=== PATIENT | female | born 1960 | race Caucasian/White ===

== ENCOUNTER 2018-06-29 11:08 | Outpatient (CLI) | payer MEDICARE ==
[~2018-06-29] VITALS: Ht 168.9 cm; Wt 92.7 kg
--- NOTE | ~2018-06-29 | OP ---
PATIENT NAME: SHEILA PRATHER MEDICAL RECORD: [id number] :64 LOCATION:D.CAT ADMISSION DATE: SURGEON: SIOMARA MARIEE MD DATE OF OPERATION: 06/29/2018 PROCEDURE: Left heart catheterization, selective coronary angiography, right radial approach. CATHETERS: A 5-Kazakh sheath, 5/4 left and right Bibi, 5/4 pig. The procedure was well tolerated. The patient returned to the brownlee. Sheath was removed. TR band was placed. FINDINGS: Left ventriculography in 30-degree SOTELO view shows decreased global hypokinesis and reduced LV function. Estimated EF 40% to 45%. CORONARY ANATOMY: LEFT MAIN: Left main is free of disease. LAD: Free of disease in the diagonal system. CIRCUMFLEX: Free of disease in the marginal system. RIGHT CORONARY ARTERY: It has about 50% stenosis in midportion, not flow obstructive. IMPRESSION: Nonischemic cardiomyopathy, improved on therapy. No contraindication to surgery from cardiovascular standpoint. TRANSINT:[id number] Voice Confirmation ID: [id number] DOCUMENT ID: [id number] SIOMARA MARIEE MD at 1135 CC: [id number] DICTATION DATE: 06/29/18 1317 INSPECTOR FLOOR: 06/29/18 1331 DEP CLI 06/29/18 [address] [place] [address]
--- NOTE | ~2018-06-29 | HEMODYNAMI ---
PATIENT:SHEILA PRATHER MEDICAL RECORD: [id number] : 64 LOCATION:[facility] ADMISSION DATE: 06/29/18 Generatedon:06/29/201813:16 Patient name: SHEILA PRATHER Patient #: [id number] SSN: : 1960 Date of study: 06/29/2018 Page: Of Hemodynamic Procedure Report Patient Data Patient Demographics Procedure consent was obtained First Name: SHEILA Gender: Female Last Name: CRESCENCIO : 1960 Patient #: [id number] Age: 58 year(s) Race: Unknown Additional ID: [id number] Contact details [address]: [address] [place] [address] State: [place] City: [place] Zip code: [address] Admission Admission Data Admission Date: 06/29/2018 Admission Time: 11:08 Height (in.): 66.5 BSA: 2.02 (m2) Height (cm.): 168.91 BMI: 32.11 (kg/m2) Weight (lbs.): 202 Weight (kg.): 91.63 Procedure Procedure Types Cath Procedure Diagnostic Procedure [facility] w/Coronaries Procedure Description Procedure Date Procedure Date: 06/29/2018 Procedure Start Time: 13:03 Procedure End Time: 13:15 Procedure Staff Name Function Yosi Bolanos MD Performing Physician Maliha Diaz RN Nurse Sarah Vega RN Nurse Ericka Coelho RT Scrub Cayla Granger RT Monitor Procedure Data Cath Procedure Fluoroscopy Diagnostic fluoroscopy Total fluoroscopy Time: 2.3 time: 2.3 min min Diagnostic fluoroscopy Total fluoroscopy dose: 649 dose: 649 mGy mGy Contrast Material Contrast Material Type Amount (ml) Isovue 300 64 Entry Location Entry Primary Successful Side Size Upsize Upsize Entry Closure [place]ton ccessful Closure Location (Fr) 1 (Fr) 2 (Fr) Remarks Device Remarks Radial Right 6 Fr Mechanical artery Short Compression Estimated blood loss: 5 ml Diagnostic catheters Device Type Used For End Catheter Placement DIAGNOSTIC [place] 110cm 5 Procedure Fr catheter ([id number]) Procedure Complications No complications Procedure Medications Medication Administration Route Dosage 0.9% NaCl I.V. 100 ml/hr Oxygen etCO2 Nasal cannula 2 l/min Lidocaine 2% added to field 20 Heparin Flush Bag added to field 2 bags (1000units/500ml NS) Dilaudid I.V. 1 mg Versed I.V. 2 mg Zofran I.V. 4 mg Radial Cocktail added to field 1 syringe (Verapomil 2mg/Nitro 400mcg/Heparin 1500units) Dilaudid I.V. 0.5 mg Versed I.V. 2 mg Hemodynamics Rest BSA: 2.02 (m2) O2 Consumption: Estimated: 183.52 (ml/min) O2 Consumption indexed : Estimated:90.85 (ml/min/m) Heart Rate: 56 (bpm) Pressure Samples Time Site Value (mmHg) Purpose Heart Use Rate(bpm) 13:10 LV 136/9,12 Snapshot 53 13:10 AO 119/41(78) Pullback 63 13:10 LV 126/10,15 Pullback 63 Gradients Valve Time Site 1 Site 2 Mean SEP/DFP Peak To Heart Use (mmHg) (sec/min) Peak Rate (mmHg) (bpm) Aortic 13:10 LV AO 15 16 7 63 126/10,15 119/41(78) Calculations Valve P-P Mean Valve Index Valve Source Name Gradient Area Flow (cm2) Aortic 7 15 7 15 Snapshots Pre Cath Intra NCS Post Cath Vital Signs Time Heart Resp SPO2 etCO2 NIBP (mmHg) Rhythm Pain Sedation Rate (ipm) (%) (mmHg) Status Level (bpm) 12:56:43 79 13 96 39.8 145/73(116) NSR 0 (11) 10(A) , No pain 13:01:05 57 12 97 46.6 140/70(119) NSR 0 (11) 10(A) , No pain 13:05:27 58 12 97 31.5 140/69(111) NSR 0 (11) 10(A) , No pain 13:09:39 72 13 95 40.6 108/58(88) NSR 0 (11) 10(A) , No pain 13:13:49 61 14 95 45.8 121/68(95) NSR 0 (11) 10(A) , No pain Medications Time Medication Route Dose Verified Delivered Reason Notes Effectiveness by by 12:55:56 0.9% NaCl I.V. 100 Yosi Sarah used for ml/hr CiciEamon Vega procedure RN 12:56:05 Oxygen etCO2 2 l/min Yosi Banuelosyla used for Nasal [place] Gary procedure cannula MD ALEXANDER 12:56:14 Lidocaine 2% added 20ml Yosi Deluca for local to vial [facility] anesthetic field MD CHAUDHARY 12:56:22 Heparin Flush added 2 bags Yosi Deluca used for Bag to [facility] procedure (1000units/500ml field MD CHAUDHARY NS) 13:04:09 Dilaudid I.V. 1 mg Yosi Deluca for sedation [facility] Bolanos MD, MD 13:04:16 Versed I.V. 2 mg Yosi Deluca for sedation [facility] Bolanos MD, MD 13:04:27 Zofran I.V. 4 mg Yosi Deluca for nausea [facility] Bolanos MD, MD 13:05:27 Radial Cocktail added 1 Yosi Deluca for (Verapomil to syringe [facility] vasodilation 2mg/Nitro field MD CHAUDHARY 400mcg/Heparin 1500units) 13:08:36 Dilaudid I.V. 0.5 mg Yosi Deluca for sedation [facility] Bolanos MD, MD 13:08:41 Versed I.V. 2 mg Yosi Deluca for sedation [facility] Bolanos MD, MD Procedure Log Time Note 12:35:42 Maliha Diaz RN sent for patient. Start room use. 12:35:42 Time tracking: Regular hours (M-F 7:00 - 5:00) 12:35:47 Plan of Care:Hemodynamics will remain stable., Cardiac rhythm will remain stable., Comfort level will be maintained., Respiratory function will remain adequate., Patient/ family verbilizes understanding of procedure., Procedure tolerated without complication., Recovers from procedure without complications.. 12:42:51 Patient received from Pre/Post Procedure Room to CCL 1 Alert and oriented. Tansferred to table in Supine position. 12:42:54 Warm blankets applied, and brennen hugger turned on for patient comfort. 12:42:55 Correct patient and procedure confirmed by team. 12:42:57 Signed procedure consent form obtained from patient. 12:42:58 ECG and BP/O2 sat monitors applied to patient. 12:43:06 H&P Date Dictated: 06/19/2018 Within 30 days and on chart., H&P Addendum completed by physician on day of procedure. (MUST COMPLETE FOR ALL OUTPATIENTS). 12:46:49 Pre-procedure instructions explained to patient. 12:46:52 Family in patients room. 12:46:54 Patient NPO since Midnight. 12:47:03 Is the patient allergic to Iodine/contrast media? No. 12:47:12 Was the patient premedicated? Yes 12:47:14 Is patient on blood thinner?No 12:47:16 Patient diabetic? Yes. 12:47:17 If diabetic: On Metformin? No 12:47:23 Snore? Yes 12:47:25 Sleep apnea? No 12:47:36 Airway obstruction? Yes COPD 12:47:53 IV patent on arrival in left forearm with 0.9% NaCl at KVO. 12:48:05 Lab results completed and on chart. 12:48:09 Right Radial & Right Groin area was prepped with chlora-prep and draped in sterile fashion 12:48:11 Alarms reviewed by R. N. 12:48:12 Sharps counted by scrub and verified by R.N. 12:48:13 Physician paged 12:54:43 Use device set Radial Dx or PCI 12:54:48 ACIST Syringe (05648) opened to sterile field. 12:54:49 Bag Decanter (2002S) opened to sterile field. 12:54:49 ACIST Hand Control (57042) opened to sterile field. 12:54:50 ACIST Manifold (44638) opened to sterile field. 12:54:52 Tegaderm 4 x 4 (1626W) opened to sterile field. 12:54:54 Medline Cath Pack ([id number]) opened to sterile field. 12:54:54 DIAGNOSTIC WIRE .035 260cm J wire (319572) opened to sterile field. 12:54:55 MBrace Wrist Support ([id number]) opened to sterile field. 12:54:56 SHEATH 6Fr Prelude Radial ([id number]) opened to sterile field. 12:55:30 Vital chart was started 12:55:56 0.9% NaCl 100 ml/hr I.V. was administered by Sarah Vega RN; used for procedure; 12:56:05 Oxygen 2 l/min etCO2 Nasal cannula was administered by Sarah Vega RN; used for procedure; 12:56:11 Patient Weight : 202 lbs 12:56:14 Lidocaine 2% 20ml vial added to field was administered by Yosi Bolanos MD; for local anesthetic; 12:56:20 Patient Height : 66.5 inches 12:56:22 Heparin Flush Bag (1000units/500ml NS) 2 bags added to field was administered by Yosi Bolanos MD; used for procedure; 13:00:08 Zero performed for pressure channel P1 13:01:35 Zero performed for pressure channel P1 13:02:03 --------ALL STOP TIME OUT------ 13:02:04 Final Timeout: patient, procedure, and site verified with staff and physician. All members of the team are in agreement. 13:02:06 Right Radial & Right Groin site verified by team. 13:02:09 Physical assessment completed. ASA score P 2 - A patient with mild systemic disease as per Yosi Bolanos MD. 13:02:12 Sedation plan: IV Moderate Sedation Medication:Versed, Dilaudid 13:03:43 Procedure started. 13:03:43 Full Disclosure recording started 13:03:55 Local anesthetic to right radial artery with Lidocaine 2% by Yosi Bolanos MD.INITIAL ACCESS ONLY 13:04:09 Dilaudid 1 mg I.V. was administered by Yosi Bolanos MD; for sedation; 13:04:16 Versed 2 mg I.V. was administered by Yosi Bolanos MD; for sedation; 13:04:27 Zofran 4 mg I.V. was administered by Yosi Bolanos MD; for nausea; 13:05:02 A 6 Fr Short sheath was inserted into the Right Radial artery 13:05:27 Radial Cocktail (Verapomil 2mg/Nitro 400mcg/Heparin 1500units) 1 syringe added to field was administered by Yosi Bolanos MD; for vasodilation; 13:05:28 A DIAGNOSTIC [place] 110cm 5 Fr catheter (246940) was advanced over the wire and used for Procedure. 13:05:39 Baseline sample Acquired. 13:05:43 Baseline sample Acquired. 13:05:50 Rhythm: sinus bradycardia 13:07:37 RCA angiography performed. 13:08:36 Dilaudid 0.5 mg I.V. was administered by Yosi Bolanos MD; for sedation; 13:08:41 Versed 2 mg I.V. was administered by Yosi Bolanos MD; for sedation; 13:09:13 LCA angiography performed. 13:09:42 LV gram done using SOTELO 13:09:45 Injector settings: Ml/sec: 7, Volume: 15, 13:10:15 LV hemodynamics recorded. 13:10:58 EF : 35 % 13:11:09 Catheter removed. 13:11:24 TR BAND Standard ([id number]) opened to sterile field. 13:11:28 Procedure ended.(Physican Out) 13:11:50 Sheath removed intact; hemostasis achieved with Mechanical Compression to the Right Radial artery. 13:12:12 Fluoroscopy time 02.30 minutes. 13:12:16 Fluoroscopy dose: 649 mGy 13:12:16 Flurop Dose total: 649 13:12:19 Contrast amount:Isovue 300 64ml. 13:12:21 Sharps counted by scrub and verified by R.N. 13:12:27 TR band inflated with 10cc of air. 13:12:32 Post-procedure physical assessment completed. ASA score P 2 - A patient with mild systemic disease as per Yosi Bolanos MD. 13:12:35 Post procedure rhythm: unchanged. 13:12:38 Estimated blood loss: 5 ml 13:14:14 Post procedure instruction explained to patient.Patient verbalizes understanding. 13:14:14 Patient needs reinforcement of post procedure teaching. 13:15:18 Procedure and supply charges have been captured, reviewed, submitted and are correct. 13:15:22 Procedure Complication : No complications 13:15:26 Vital chart was stopped 13:15:26 See physician's report for complete and final results. 13:15:28 Report given to Pre/Post Procedure Room. 13:15:31 Patient transfered to Pre/Post Procedure Room with Bed. 13:15:33 Procedure ended. 13:15:33 Full Disclosure recording stopped 13:15:41 End room use (Document Last) Device Usage Item Name Manufacture Quantity Catalog Number Hospital Part Current M inimal Lot# / Charge Number Stock Stock Serial# Code ACIST Syringe Acist 1 65457 [id number] 086853 170356 2 0 (08484) [employer] Bag Decanter Microtek 1 2001S 673629 60247 415979 5 (2001S) Medical Inc[employer] ACIST Hand Acist 1 47146 439495 265888 276712 5 Control (69336) [employer] Inc ACIST Manifold Acist 1 04705 452847 965097 840068 5 (86643) [employer] Tegaderm 4 x 4 3M 1 1626W 338194 543603 122485 5 (1626W) Medline Cath Cardinal 1 [id number] 005601 80746 889258 5 [facility] ([id number]) DIAGNOSTIC WIRE [facility] Gigi 1 092123 777835 707261 911420 3 0 .035 260cm J wire (169810) MBrace Wrist Advanced 1 140-0250-00 777242 72511 965345 5 Support Vascular ([id number]) Dynamics SHEATH 6Fr Merit 1 [id number] 346978 472493 580624 5 Prelude Radial Medical ([id number]) DIAGNOSTIC Terumo 1 60-9200 540461 385276 557517 5 [place] 110cm 5 Fr catheter (968230) TR BAND Terumo 1 [id number] 078858 417845 123269 4 0 Standard ([id number]) Signature Audit [place] Stage Time Signature Unsigned Intra-Procedure 06/29/2018 Cayla Granger 1:16:22 PM RT(R) Signatures Monitor : Cayla Granger Signature : RT Date : Time : [address] [place] [address]
[2018-06-29] MEDS ORDERED: MS CONTIN30 MG PO (11:40)
[2018-06-29] MEDS ORDERED: NEURONTIN 400400 MG PO (11:41)
[2018-06-29] MEDS ORDERED: BAYER CHEWABLE81 MG PO (11:42)
[2018-06-29] MEDS ORDERED: ISOSORBIDE MONO60 M1 PO (11:42)
[2018-06-29] MEDS ORDERED: COREG6.25 MG PO (11:43)
[2018-06-29] MEDS ORDERED: SYNTHROID25 MCG PO (11:43)
[2018-06-29] MEDS ORDERED: LANOXIN125 MCG (11:44)
[2018-06-29] MEDS ORDERED: VALIUM10 MG (11:45)
[2018-06-29] MEDS ORDERED: FUROSEMIDE20 MG PO (11:46)
[2018-06-29] MEDS ORDERED: CLARITIN 10 MG10 MG PO (11:47)
[2018-06-29] MEDS ORDERED: CARBIDOPA-LEVO1 EAC2 PO (11:47)
[2018-06-29] MEDS ORDERED: CARBATROL 200200 MG PO (11:47)
[2018-06-29] MEDS ORDERED: LEXAPRO10 MG PO (11:48)
[2018-06-29] MEDS ORDERED: SINGULAIR10 MG PO (11:48)
[2018-06-29] MEDS ORDERED: KLONOPIN1 MG PO (11:48)
[2018-06-29] MEDS ORDERED: AMBIEN10 MG PO (11:50)
[2018-06-29] MEDS ORDERED: NITROSTAT0.4 MG SL (11:51)
[2018-06-29] MEDS ORDERED: METOLAZONE5 MG PO (11:51)
[2018-06-29] MEDS ORDERED: TURMERIC PO (11:52)
[2018-06-29] MEDS ORDERED: XANAX1 MG PO (11:53)
[2018-06-29 11:59] VITALS: BP 156/76; Ht 168.9 cm; Wt 92.7 kg
[2018-06-29 12:14] LABS: ANION GAP 10.8 mmol/L (8-16); CALCIUM 8.4 mg/dL (8.5-10.1); CARBON DIOXIDE 28.9 mmol/L (21.0-32.0); CREATININE - SERUM 1.7 mg/dL (0.6-1.3); POTASSIUM - SERUM 3.7 mmol/L (3.5-5.1)
[2018-06-29 12:26] LABS: BASOPHILS 0.6 % (0-2); EOSINOPHILS 3.7 % (0-7); HEMATOCRIT 33.1 % (36.0-48.0); HEMOGLOBIN 11.4 g/dL (12-16); IMMATURE GRANULOCYTES 0.4 % (0-5); LYMPHOCYTES 34.9 % (15-50); MCH 30.2 pg (26.0-34.0); MCHC 34.4 g/dL (31.0-37.0); MCV 87.8 fL (80.0-100.0); MEAN PLATELET VOLUME 11.9 fL (7.4-10.4); MONOCYTES 6.2 % (2-11); NEUTROPHILS 54.2 % (40-80); RBC 3.77 10x6/uL (4.00-5.40); RDW 13.5 % (11.5-14.5); WBC 8.3 10x3/uL (4.8-10.8)
[2018-06-29 12:27] LABS: PLATELET COUNT 181 10x3/uL (130-400)
== END 2018-06-29 15:35 | disposition home or self-care (01) ==
LOC: D.CATH 11:08
PROVIDERS: Internal Medicine Interventional Cardiology
DX: I42.8 Other cardiomyopathies (principal); Z01.812 Encounter for preprocedural laboratory examination